=== PATIENT | male | born 1995 | race Caucasian/White ===

== ENCOUNTER 2018-10-30 17:47 | Emergency (ER) | payer BC ==
[~2018-10-30] VITALS: Ht 190.5 cm; Wt 143.8 kg
[2018-10-30 18:08] VITALS: Ht 190.5 cm; Wt 143.8 kg
[2018-10-30 21:46] VITALS: BP 128/78
== END 2018-10-30 21:46 | disposition home or self-care (01) ==
LOC: ED 17:47
DX: B34.9 Viral infection, unspecified (principal); F41.9 Anxiety disorder, unspecified
CPT/HCPCS: 87804